=== PATIENT | female | born 1975 | race Caucasian/White ===

== ENCOUNTER 2022-09-28 08:09 | Outpatient (CLI) | payer BC, SELFPAY ==
--- NOTE | ~2022-09-28 | MM_ITS ---
EXAMINATION: MM screening roula BI w phuong HISTORY: Screening TECHNIQUE: Craniocaudal and mediolateral oblique 3-D tomosynthesis images were obtained and synthetic 2-D images were generated. CAD analysis was submitted and interpreted. COMPARISON: No prior mammogram is available for comparison at this institution. BREAST PARENCHYMAL COMPOSITION: The breasts are heterogeneously dense, which may obscure small masses . FINDINGS: There is no evidence of suspicious mass, calcification, or architectural distortion to sugg est malignancy in either breast. There has been no suspicious interval change. IMPRESSION: 1. No mammographic evidence of malignancy. 2. Recommend routine screening mammography in one year. BI-RADS Category 1: Negative Reviewed, dictated and finalized at location A.
== END 2022-09-28 08:10 | disposition home or self-care (01) ==
LOC: ANHIMG 08:10
PROVIDERS: PCP Nurse Practitioner Family; Visit Provider Nurse Practitioner Family
DX: Z12.31 Encounter for screening mammogram for malignant neoplasm of breast (principal)
CPT/HCPCS: 77063; 77067

== ENCOUNTER 2023-03-26 08:21 | Emergency (ER) | payer BC, SELFPAY ==
[2023-03-26 08:43] VITALS: BP 105/85; PULSE 69; RESP 16; TEMP 36.1; O2SAT 97
--- NOTE | 2023-03-26 09:12 | ED.GENADULT ---
HPI - General Adult General Chief complaint: Upper Respiratory Infection Stated complaint: SWOLLEN GLAND/SPOT ON TONSIL/CONGESTION/RUNNY NOSE Source: patient Mode of arrival: ambulatory Limitations: no limitations History of Present Illness HPI narrative: Patient presents for evaluation of sore throat for the last 5 days. She has a history of recurrent tonsillitis and this feels similar. No fever, chills, nausea, vomiting, diarrhea. She has experienced sinus congestion and thick green drainage from her nares. Her had COVID about 2 weeks ago. She took a home COVID test which was negative. Related Data Home Medications Medication Instructions Recorded Confirmed omeprazole 40 mg capsule,delayed 40 mg PO DAILY 05/20/20 03/26/23 release cetirizine 10 mg tablet (Zyrtec) 10 mg PO DAILY PRN allergies 05/17/22 03/26/23 Allergies Allergy/AdvReac Type Severity Reaction Status Date / Time No Known Allergies Allergy Unknown Verified 03/26/23 08:42 Review of Systems Review of Systems: CONSTITUTIONAL: Denies fever, chills, or sweats. EYES: Denies visual changes, redness, or discharge. ENT: Reports sore throat, sinus congestion and thick green nasal drainage. Denies otalgia. CARDIOVASCULAR: Denies chest pain, palpitations, or edema. RESPIRATORY: Denies cough or dyspnea. GASTROINTESTINAL: Denies abdominal pain, nausea, vomiting, or diarrhea. GENITOURINARY: Denies dysuria or hematuria. SKIN: Denies rash or itching. MUSCULOSKELETAL: Denies back pain, joint pain, or myalgia. NEUROLOGIC: Denies headache, numbness, dizziness, or weakness. PSYCHIATRIC: Denies anxiety or depression. [facility] Past Medical History Medical History Allergic rhinitis Anxiety Gastroesophageal reflux disease Tonsillitis Vertigo Vitamin D deficiency Surgical History Surgical History History of hysterectomy (~2012) Family History Family History Mother Hypertension Father Hypertension Diabetes mellitus Cancer Sibling Hypothyroidism Social History Social History Smoking status: Never smoker Alcohol intake: current Substance use: never Substance use type: does not use Lack of Transportation: No Lack of Food: Never True Current Housing: I Have Housing Concerned About Future Housing: No Difficulty Paying Gas/Electric Bills: No Difficulty Paying for Meds: No Currently Unemployed: No Education: Trade/Vocational Certificate Difficulty w/ Childcare or Family Care: No Living arrangements: with family Additional living arrangements comments: Spouse Occupation/Education: occupation 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 HEAD: Normocephalic, atraumatic. EYES: PERRLA and EOMI. ENT: Nares clear, no rhinorrhea or epistaxis. Mucous membranes moist. Posterior pharyngeal erythema with small amount of white exudate. Uvula is midline. Bilateral TMs pearly arriaga nonbulging NECK: Supple. No adenopathy or masses. No carotid bruits or JVD CHEST: Clear to auscultation. No respiratory distress. No wheezes rales or rhonchi HEART: Regular rate and rhythm. No murmur heard. Normal peripheral pulses. ABDOMEN: Soft, nontender, nondistended, normal active bowel sounds. EXTREMITIES: Normal range of motion. No edema. SKIN: Warm, dry, no rash. NEURO: No focal deficits. Alert and oriented x3. PSYCH: Normal mood and affect. Course Course Emergency Course: This is a 48-year-old female who presented
== END 2023-03-26 09:20 | disposition home or self-care (01) ==
PROVIDERS: Emergency Provider Nurse Practitioner; PCP Nurse Practitioner Family
DX: J03.90 Acute tonsillitis, unspecified (principal); Z79.899 Other long term (current) drug therapy
CPT/HCPCS: 87081; 87804; 87880; 99213; G0463

== ENCOUNTER 2023-05-24 02:25 | Day surgery (SDC) | payer BC, SELFPAY ==
--- NOTE | 2023-05-22 08:45 | SUR.PREOP ---
Patient called regarding upcoming procedure. Message left on patient's voicemail regarding preop instructions, appointment times, and procedure prep.
--- NOTE | 2023-05-23 10:40 | PM.HPGS ---
History of Present Illness History of Present Illness Consent: Risks, benefits, and alternatives have been discussed and questions answered. Patient agrees to proceed with procedure. Chief complaint: neoplasm screening Narrative: Veronica Schmid is a 48 year old female who is referred for colon cancer screening. Review of Systems Review of Systems: All systems reviewed & are unremarkable except as noted in HPI and below PMFSH Past Medical History Medical History Allergic rhinitis Anxiety Gastroesophageal reflux disease Tonsillitis Vertigo Vitamin D deficiency Surgical History Surgical History History of hysterectomy (~2012) Family History Family History Mother Hypertension Father Hypertension Diabetes mellitus Cancer Sibling Hypothyroidism Social History Social History Smoking status: Never smoker Alcohol intake: current Substance use: never Substance use type: does not use Lack of Transportation: No Lack of Food: Never True Current Housing: I Have Housing Concerned About Future Housing: No Difficulty Paying Gas/Electric Bills: No Difficulty Paying for Meds: No Currently Unemployed: No Education: Trade/Vocational Certificate Difficulty w/ Childcare or Family Care: No Living arrangements: with family Additional living arrangements comments: Spouse Occupation/Education: occupation 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 Gender identity (if verbalized by the patient): Female Sexual Orientation (if Verbalized by the Patient): Straight or Heterosexual Spiritual care concerns: No Meds Home Medications and Allergies Home Medications Medication Instructions Recorded Confirmed Type omeprazole 40 mg capsule,delayed 40 mg PO DAILY 05/20/20 05/24/23 History release cetirizine 10 mg tablet (Zyrtec) 10 mg PO DAILY PRN allergies 05/17/22 05/24/23 History escitalopram oxalate 20 mg tablet 20 mg PO DAILY #90 tabs 02/14/23 05/24/23 Rx (Lexapro) cholecalciferol (vitamin D3) 1,250 1,250 mcg PO WEEKLY #12 caps 02/22/23 05/24/23 Rx mcg (50,000 unit) capsule scopolamine base 1 mg over 3 days 1 patch transdermal Q3D PRN motion 02/22/23 05/24/23 Rx transdermal patch sickness #10 ea propranolol 20 mg tablet 20 mg PO Q12H #60 tabs 03/20/23 05/24/23 Rx Allergies Allergy/AdvReac Type Severity Reaction Status Date / Time No Known Allergies Allergy Unknown Verified 05/24/23 06:37 Exam Const: General: alert Orientation/consciousness: patient oriented x3 Resp: Auscultation: clear to auscultation bilaterally Cardio: Rhythm: regular rhythm GI: GI Palp: Yes Soft to palpation and No Tenderness to palpation present (GI) Neuro: General: patient oriented x3 Assessment and Plan Assessment and plan (1) Colon cancer screening: Code(s): Z12.11 - Encounter for screening for malignant neoplasm of colon Status: Acute Assessment and Plan: Colonoscopy with possible biopsy or polypectomy or cautery or injection of substances.
[2023-05-24 06:39] VITALS: BP 123/79; PULSE 70; RESP 16; TEMP 37.4; O2SAT 99
[2023-05-24] MEDS: LACTATED RINGERS 1,000 ML 150 ML IV CONT (06:40)
--- NOTE | 2023-05-24 07:19 | WPDANESEPPF ---
Anes - Initial Pre Proc Eval Procedure: Operation Date: 05/24/23 08:00 Proposed Procedures p Screening Colonoscopy - Mark Chang MD Date/Time: 05/24/23 07:19 Surgeon: Mark Chang MD Pre Op Diagnosis: neoplasm screening Patient Data Age: 48 Gender: F Height: Weight: 88.8 kg Last Vital Signs Temp 37.4 C 05/24/23 06:39 Pulse 70 05/24/23 06:39 Resp 16 05/24/23 06:39 BP 123/79 05/24/23 06:39 Pulse Ox 99 05/24/23 06:39 O2 Del Method Room Air 05/24/23 06:39 Allergies Allergy/AdvReac Type Severity Reaction Status Date / Time No Known Allergies Allergy Unknown Verified 05/24/23 06:37 Home Medications Medication Instructions Recorded Confirmed Type omeprazole 40 mg capsule,delayed 40 mg PO DAILY 05/20/20 05/24/23 History release cetirizine 10 mg tablet (Zyrtec) 10 mg PO DAILY PRN allergies 05/17/22 05/24/23 History escitalopram oxalate 20 mg tablet 20 mg PO DAILY #90 tabs 02/14/23 05/24/23 Rx (Lexapro) cholecalciferol (vitamin D3) 1,250 1,250 mcg PO WEEKLY #12 caps 02/22/23 05/24/23 Rx mcg (50,000 unit) capsule scopolamine base 1 mg over 3 days 1 patch transdermal Q3D PRN motion 02/22/23 05/24/23 Rx transdermal patch sickness #10 ea propranolol 20 mg tablet 20 mg PO Q12H #60 tabs 03/20/23 05/24/23 Rx Patient hx anesthesia problems: none Family hx anesthesia problems: none Results Review: All pre-operative results and documents have been reviewed as part of the pre-operative evaluation. [facility] Past Medical History Medical History Allergic rhinitis Anxiety Gastroesophageal reflux disease Tonsillitis Vertigo Vitamin D deficiency Surgical History Surgical History History of hysterectomy (~2012) Family History Family History Mother Hypertension Father Hypertension Diabetes mellitus Cancer Sibling Hypothyroidism Social History Social History Smoking status: Never smoker Alcohol intake: current Substance use: never Substance use type: does not use Lack of Transportation: No Lack of Food: Never True Current Housing: I Have Housing Concerned About Future Housing: No Difficulty Paying Gas/Electric Bills: No Difficulty Paying for Meds: No Currently Unemployed: No Education: Trade/Vocational Certificate Difficulty w/ Childcare or Family Care: No Living arrangements: with family Additional living arrangements comments: Spouse Occupation/Education: occupation 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 Gender identity (if verbalized by the patient): Female Sexual Orientation (if Verbalized by the Patient): Straight or Heterosexual Spiritual care concerns: No Anes - Eval Final PreProcedure Day of Procedure 05/24/23 07:19 Patient weight: obese Heart: regular rate and rhythm Lungs: clear to auscultation Airway: Mallampati scale class II Neurological: alert and oriented Last oral intake: >/= 8 hours ASA classification: II Emergent: no Anesthetic plan: proceed Anesthesia type and monitoring: general GIVS and standard monitoring Results Review: All pre-operative results and documents have been reviewed as part of the pre-operative evaluation. Informed Consent: The patient's anesthetic plan and its attendant risks and benefits were discussed with the patient/family/POA. Questions were solicited and answers provided to the satisfaction of the patient/family/POA.
[2023-05-24 08:00] VITALS: BP 103/70; PULSE 78; RESP 19; O2SAT 99
[2023-05-24 08:10] VITALS: BP 112/77; PULSE 69; RESP 21; O2SAT 99
[2023-05-24 08:20] VITALS: BP 116/86; PULSE 74; RESP 20; O2SAT 100
== END 2023-05-24 08:28 | disposition home or self-care (01) ==
PROVIDERS: PCP Nurse Practitioner Family; Visit Provider Internal Medicine Gastroenterology
PROC: 0DJD8ZZ Inspection of Lower Intestinal Tract, Via Natural or Artificial Opening Endoscopic (ICD-10-PCS; CPT 45378; principal; 2023-05-24 08:00)
DX: Z12.11 Encounter for screening for malignant neoplasm of colon (principal); F41.9 Anxiety disorder, unspecified; K21.9 Gastro-esophageal reflux disease without esophagitis; E55.9 Vitamin D deficiency, unspecified; J30.9 Allergic rhinitis, unspecified; E66.9 Obesity, unspecified; Z68.45 Body mass index [BMI] 70 or greater, adult; Z80.9 Family history of malignant neoplasm, unspecified
CPT/HCPCS: 45378; J2704; J7120

== ENCOUNTER 2024-01-09 07:50 | Outpatient (CLI) | payer BC, SELFPAY ==
--- NOTE | ~2024-01-09 | MM_ITS ---
EXAMINATION: MM screening roula BI w phuong HISTORY: Screening TECHNIQUE: Craniocaudal and mediolateral oblique 3-D tomosynthesis images were obtained and synthetic 2-D images were generated. CAD analysis was submitted and interpreted. COMPARISON: 09/28/2022 BREAST PARENCHYMAL COMPOSITION: Dense: The breasts are heterogeneously dense, which may obscure small masses FINDINGS: There are developing asymmetries in the upper outer quadrant of the right breast. The left breast is stable without evidence for malignancy. IMPRESSION: 1. Developing right breast asymmetries. 2. Additional mammographic views and possible breast ultrasound are recommended. BI-RADS Category 0: Incomplete: Needs additional imaging evaluation. Reviewed, dictated and finalized at location B. IMPRESSION: 1. Developing right breast asymmetries. 2. Additional mammographic views and possible breast ultrasound are recommended . BI-RADS Category 0: Incomplete: Needs additional imaging evaluation.
== END 2024-01-09 07:51 | disposition home or self-care (01) ==
LOC: ANHIMG 07:52
PROVIDERS: PCP Nurse Practitioner Family; Visit Provider Nurse Practitioner Family
DX: Z12.31 Encounter for screening mammogram for malignant neoplasm of breast (principal); N64.89 Other specified disorders of breast
CPT/HCPCS: 77063; 77067

== ENCOUNTER 2024-01-09 11:40 | Outpatient (CLI) | payer BC, SELFPAY ==
--- NOTE | ~2024-01-09 | XR_ITS ---
AP view of the pelvis and AP and lateral views of the left hip Clinical history: Pain Findings: No acute fracture or dislocation is seen. Osseous alignment is anatomic. Bilateral hip and SI joint spaces are preserved. Soft tissues are unremarkable. Impression: No significant abnormality is seen. Reviewed, dictated and finalized at location . Impression: No significant abnormality is seen.
== END 2024-01-09 11:41 ==
PROVIDERS: PCP Nurse Practitioner Family; Visit Provider Nurse Practitioner Family
DX: M25.552 Pain in left hip (principal)
CPT/HCPCS: 73502

== ENCOUNTER 2024-01-30 11:13 | Outpatient (CLI) | payer BC, SELFPAY ==
--- NOTE | ~2024-01-30 | MMUS_ITS ---
EXAMINATION: MM diagnostic roula RT w phuong, US breast RT limited HISTORY: Follow-up right breast asymmetry TECHNIQUE: Additional 3-D tomosynthesis images of the right breast were performed and synthetic 2-D i mages were generated. CAD analysis was submitted and interpreted. High resolution Limited right breas t ultrasound was performed. COMPARISON: Comparison to multiple prior studies sequentially, with oldest reviewed study dated 09/28. BREAST PARENCHYMAL COMPOSITION: Not dense: There are scattered areas of fibroglandular density. FINDINGS: MAMMOGRAPHIC FINDINGS: There are persistent asymmetries in the lateral aspect of the right breast, although no discrete mass or architectural distortion is identified. No suspicious clusters of calcifications. ULTRASOUND: Limited right breast ultrasound: At 8:00, 4 cm from the nipple there is an irregular shaped hypoechoi c 4 mm mass without significant posterior features or internal vascularity. No other suspicious lacey s are identified. IMPRESSION: 1. Irregular shaped hypoechoic 4 mm right breast mass at 8:00, 4 cm from the nipple. 2. Ultrasound-guided right breast biopsy recommended. BI-RADS category 4, suspicious findings. Reviewed, dictated and finalized at location B. IMPRESSION: 1. Irregular shaped hypoechoic 4 mm right breast mass at 8:00, 4 cm from the ni pple. 2. Ultrasound-guided right breast biopsy recommended. BI-RADS category 4, suspicious findings.
== END 2024-01-30 11:14 | disposition home or self-care (01) ==
PROVIDERS: PCP Nurse Practitioner Family; Visit Provider Nurse Practitioner Family
DX: R92.8 Other abnormal and inconclusive findings on diagnostic imaging of breast (principal)
CPT/HCPCS: 76642; 77061; 77065; G0279

== ENCOUNTER 2024-02-07 08:37 | Outpatient (CLI) | payer BC, SELFPAY ==
--- NOTE | ~2024-02-07 | US_ITS ---
US breast RT limited 02/07/2024 11:07 Indication: Right breast mass seen on prior examination. Biopsy requested. Procedure: High-resolution Limited ultrasound of the area of interest Comparison: Ultrasound dated 01/30/2024 Findings: The irregular shaped mass at 8:00, 4 cm from the nipple on prior examination is not localiz ed or duplicated on the current study. Mildly prominent ducts are noted in this area. No discrete shanta id or cystic mass. Impression: 1: Right breast mass could not be duplicated for biopsy purposes. Short-term follow-up ultrasound in 6 months recommended. BI-RADS CATEGORY 3-PROBABLY BENIGN FINDING RECOMMENDATION: Six-month limited right breast ultrasound recommended. Reviewed, dictated and finalized at location B. Impression: 1: Right breast mass could not be duplicated for biopsy purposes. Short-term fo llow-up ultrasound in 6 months recommended. BI-RADS CATEGORY 3-PROBABLY BENIGN FINDING RECOMMENDATION: Six-month limited right breast ultrasound recommended.
== END 2024-02-07 08:38 | disposition home or self-care (01) ==
PROVIDERS: PCP Nurse Practitioner Family; Visit Provider Family Medicine
DX: R92.8 Other abnormal and inconclusive findings on diagnostic imaging of breast (principal)
CPT/HCPCS: 76642

== ENCOUNTER 2024-09-09 10:23 | Outpatient (CLI) | payer OTHER, SELFPAY ==
--- NOTE | ~2024-09-09 | US_ITS ---
EXAMINATION TYPE: US breast RT limited COMPARISON: 02/07/2024, 01/30/2024 REASON FOR STUDY: N63.10 - Unspecified lump in the right breast, unspecifie... TECHNIQUE: Targeted sonographic evaluation of the right breast was performed. INTERPRETATION: At the 8:00 position right breast, 4 cm in level, there is a stable 5 x 4 x 3 mm hypoechoic parallel mass, circumscribed. No posterior shadowing. IMPRESSION: Stable 5 mm probable benign mass at the equator position right breast, as detailed above. Recommend a dditional follow-up right breast ultrasound in 6 months at the time of recommended bilateral mammogra phy. BI-RADS CATEGORY: BI-RADS 3: Probably benign Reviewed, dictated and finalized at location M. IMPRESSION: Stable 5 mm probable benign mass at the equator position right breast, as van led above. Recommend additional follow-up right breast ultrasound in 6 months a t the time of recommended bilateral mammography. BI-RADS CATEGORY: BI-RADS 3: Probably benign
--- OUTSIDE RECORDS SUMMARY | 2024-09-09 12:10 | XMS_ITS | Clinical Summary ---
Author Organization [facility] Address [address] [place] [address] Care Team Providers Care Dental Biller Name Role Phone Chelly Chappell MD Primary Care Provider [phone] Allergies No known active allergies Medications No known medications Social History Tobacco Use Types Packs/Day Years Used Date Smoking Tobacco: Never Smokeless Tobacco: Never Alcohol Use Standard Drinks/Week Comments Not Currently 0 (1 standard drink = 0.6 oz pur e alcohol) Comments No Sex and Gender Information Value Date Recorded Sex Assigned at Not on file Legal Sex Female 10:39 AM CDT Gender Identity Not on file Sexual Orientation Not on file Last Filed Vital Signs Vital Sign Reading Time Taken Comments Blood Pressure 130/84 11/06/2021 10:51 AM CDT Pulse 101 11/06/2021 10:51 AM CDT Temperature 37 C (98.6 F) 11/06/2021 10:51 AM CDT Respiratory Rate 18 11/06/2021 10:51 AM CDT Oxygen Saturation 94% 11/06/2021 10:51 AM CDT Inhaled Oxygen Concentration - - Weight 85.7 kg (189 lb) 11/06/2021 10:51 AM CDT Height 152.4 cm (5') 11/06/2021 10:51 AM CDT Body Mass Index 36.91 11/06/2021 10:51 AM CDT Plan of Treatment Health Maintenance Due Date Last Done Comments Colorectal Cancer Screening Colonoscopy (10 Years) 1974 Annual Physical 1977 Hepatitis C 01/26/1992 DTaP, Tdap and Td Vaccines ( 1 - Tdap) 1993 Hepatitis B Vaccines (1 of 3 - 19+ 3-dose series) 1993 Mammogram Screening 2014 Zoster Vaccines (1 of 2) 01/26/2024 COVID-19 Vaccine (3 - 2023-2 5 season) 2024 08/06/2020, 07/02/2020 Influenza Adult (#1) 2024 Meningococcal B Vaccine Aged Out No l onger eligible based on patient's age to complete this topic Meningococcal Vaccine Aged Out No concha angel eligible based on patient's age to complete this topic Pneumococcal Vaccine: Pediatrics (0 to 5 Years) and At-Risk Patients (6 to 64 Years) Aged Out No longer eligible b ased on patient's age to complete this topic RSV Immunizations Under 20 Months Aged Out No longer eligible b ased on patient's age to complete this topic Insurance Care Teams Dental Biller Relationship Specialty Start Date End Date Chelly Chappell MD [address] [place] [address] [place] [id number] PCP - General FAMILY PRACTICE 11/06/21
== END 2024-09-09 10:24 | disposition home or self-care (01) ==
LOC: ANHIMG 10:24
PROVIDERS: PCP Nurse Practitioner Family; Visit Provider Nurse Practitioner Family
DX: N63.13 Unspecified lump in the right breast, lower outer quadrant (principal); R92.8 Other abnormal and inconclusive findings on diagnostic imaging of breast
CPT/HCPCS: 76642

== ENCOUNTER 2024-09-24 07:53 | Outpatient (CLI) | payer OTHER, SELFPAY ==
--- OUTSIDE RECORDS SUMMARY | 2024-09-24 08:01 | XMS_ITS | Clinical Summary ---
Author Organization [facility] Address [address] [place] [address] Care Team Providers Care Merchandise Handler Name Role Phone Chelly Chappell MD Primary Care Provider [phone] Allergies No known active allergies Medications No [...] to complete this topic Insurance Care Teams Merchandise Handler Relationship Specialty Start Date End Date Chelly Chappell MD [address] [place] [address] [place] [id number] PCP - General FAMILY PRACTICE 11/06/21
[2024-09-26 12:11] VITALS: BMI 36.9
--- NOTE | 2024-09-26 12:11 | WPDHOMESLEEP ---
Sleep Study - Home Unattended Date of Study: 09/24/24 Ordering Provider: BRITTNI Weir-Connie Interpreting Provider: Marcia Cerrato, Home Sleep Study Type: Watch PAT Height: 1.52 m Weight: 85.729 kg Body Mass Index: 36.9 Neck Circumference (inches): 15 Many: 6 Reason for Sleep Study Snoring, nocturnal gasping Sleep History The patient is a 49-year-old female that had a sleep study ordered by her primary care for evaluation of sleep apnea. The patient admits to snoring loudly, trouble maintaining sleep and interruptions in breathing while asleep. The patient admits to choking or gasping at night. She does have trouble breathing on her back. She does have morning headaches. He denies having a dry or sore mouth/ throat in the morning. She does have nocturnal heartburn. She denies nocturia. She denies having difficulty falling asleep. She does have difficulty returning to sleep if she wakes up throughout the night. She denies any hypnotic or sedative use. She denies feeling anxious about sleep. She does feel tired or sleepy during the day. She does feel tired in the morning. She denies having the urge to fall asleep during the day. She does feel drowsy while driving. She denies sleep paralysis, cataplexy and hypnagogic/ hypnopompic hallucinations. She does clench or grind her teeth. She does kick or jerk her legs excessively. She denies having a restless feeling in her legs. She goes to bed at E 40 5:00 p.m. on work days and at 10:00 p.m. on her days off. It takes her 45 minutes to fall asleep on work days and 90 minutes on her days off. She gets 7 hours of sleep were days and 8 hours on her days off. Her sleep is somewhat restorative on her days off. She denies taking any planned naps. She denies dream enactment behavior. She denies sleep walking. She consumes 3-4 cups of caffeinated beverages per day. She denies tobacco and alcohol use. She denies exercising on a regular basis. FOR[facility]LY [facility], [facility] Past Medical History Medical History Vitamin D deficiency Allergic rhinitis Gastroesophageal reflux disease Anxiety Vertigo Tonsillitis Surgical History Surgical History History of hysterectomy (~2012) Family History Family History Mother Hypertension Father Hypertension Diabetes mellitus Cancer Sibling Hypothyroidism Social History Social History Smoking status: Never smoker Alcohol intake: never Substance use: never Substance use type: does not use Do You Feel Safe in your Home?: Yes Lack of Transportation: No Lack of Food: Never True Current Housing: I Have Housing Concerned About Future Housing: No Difficulty Paying Gas/Electric Bills: No Difficulty Paying for Meds: No Currently Unemployed: No Education: Trade/Vocational Certificate Difficulty w/ Childcare or Family Care: No Living arrangements: with family Additional living arrangements comments: Spouse Occupation/Education: occupation 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 Gender identity (if verbalized by the patient): Female Sexual Orientation (if Verbalized by the Patient): Straight or Heterosexual Spiritual care concerns: No Medications Home Medications ?Medication ?Instructions ?Recorded ?Confirmed ?Type cetirizine 10 mg tablet (Zyrtec) 10 mg PO DAILY PRN allergies 05/17/22 09/11/24 History buspirone 5 mg tablet 5 mg PO BID #60 tabs 08/30/24 09/11/24 Rx escitalopram oxalate 20 mg tablet 20 mg PO DAILY #90 tabs 08/30/24 09/11/24 Rx (Lexapro) omeprazole 40 mg capsule,delayed 40 mg PO DAILY #90 caps 08/30/24 09/11/24 Rx release propranolol 40 mg tablet 40 mg PO Q12H #180 tabs 08/30/24 09/11/24 Rx estradiol 0.5 mg tablet 0.5 mg PO DAILY #30 tabs 09/11/24 09/11/24 Rx semaglutide 0.25 mg or 0.5 mg (2 0.25 mg (0.368 mL) subcut WEEKLY 09/20/24 Rx mg/3 mL) subcutaneous pen injector #3 mL (Platteric) Sleep Procedure The sleep study was completed using WatchPAT a technically adequate device with seven channels: peripheral arterial tone, actigraphy, body position, snore, respiratory movement, pulse oximetry, sleep staging, and heart rate. Prior to using the device, the patient received verbal and written instructions for its application and was provided with the help desk phone number for additional telephonic instruction with 24-hour availability of qualified personnel to answer questions. The study was scored using CMS guidelines. Sleep Architecture REM latency is 26 minutes. The patient had 2 episodes of waking. Sleep architecture shows 12.1% deep sleep, 57.5% light sleep, and (as % Total Sleep Time) showed NREM (Light 57.5%; Deep 12.1%), and a 30.4% stage REM. The patient spent 67.2% of total sleep time in the supine position. Sleep efficiency was 96.37. Respiratory Analysis The overall AHI (pAHI 3%:) is 28.9. The central AHI is 0.2. The AHI was 27.4 in NREM and 32.3 in REM sleep. The AHI was 33.7 in Supine and 18.9 in Non-supine sleep. Percent of Sajan Burnett respirations is 0.0. Oximetry Data The oxygen desaturation index (WILVER 4%:) is 15.2. The mean saturation is 92%, and the lowest saturation is 80%. Time spent with saturation < 88% is 8.1 minutes. Snoring Profile Snoring average intensity is 41 dB. The patient snored above 45 decibels for 18.4 minutes, 3.3% of sleep time. Cardiac Profile The average pulse rate is 62 beats per minutes. The lowest pulse rate is 48 bpm. The highest pulse rate reported is 90 bpm. Atrial fibrillation was not detected. Premature beats occur <0.1 per minute. Assessment and Plan Assessment and Plan (1) FARIBA (obstructive sleep apnea): Code(s): G47.33 - Obstructive sleep apnea (adult) (pediatric) Status: Acute Assessment and Plan: The patient had an overall AHI of 15.9 with desaturation down to 80%. This is consistent with moderate sleep apnea. I recommend that the patient be prescribed Resmed AirSense 11 AutoPAP 5-15 cm H2O, CPAP mask/filters/tubing and heated humidity. A mandibular advancement device is also an acceptable treatment option. This should be used with all episodes of sleep.? Compliance should be reviewed within 31-90 days of starting therapy for usage greater than 4 hours per night greater than 70% of the nights. The patient should be asked about symptoms such as?excessive daytime sleepiness, quality of sleep, decreased nocturia, increased?mental functioning such as memory, mood, and concentration. Data The data obtained during this sleep study is adequate for interpretation. Certification This sleep study has been reviewed by a board certified sleep medicine physician.
== END 2024-09-25 11:50 | disposition home or self-care (01) ==
PROVIDERS: PCP Nurse Practitioner Family; Visit Provider Nurse Practitioner Family
DX: G47.33 Obstructive sleep apnea (adult) (pediatric) (principal)
CPT/HCPCS: 95800

== ENCOUNTER 2025-01-14 14:29 | Outpatient (CLI) | payer OTHER, SELFPAY ==
--- NOTE | ~2025-01-14 | XR_ITS ---
XR knee RT 3V 01/14/2025 14:44 Indication: Right knee pain Procedure: 3 views right knee Comparison: No prior studies for comparison. Findings: No fracture, subluxation or dislocation. No joint effusion. No foreign bodies. There is dolly tomic alignment. Impression: 1: No significant bone or joint abnormality. Reviewed, dictated and finalized at location B. Impression: 1: No significant bone or joint abnormality.
== END 2025-01-14 14:30 | disposition home or self-care (01) ==
LOC: GOSHIMG 14:29
PROVIDERS: PCP Nurse Practitioner Family; Visit Provider Nurse Practitioner Family
DX: M25.561 Pain in right knee (principal)
CPT/HCPCS: 73562

== ENCOUNTER 2025-03-12 12:45 | Outpatient (CLI) | payer OTHER, SELFPAY ==
--- NOTE | ~2025-03-12 | MMUS_ITS ---
EXAMINATION: MM diagnostic roula BI w phuong, US breast RT limited INDICATION: 50-year old female; follow-up right breast mass which was recommended for biopsy however decision was made to follow the lesion instead. Annual left mammogram. COMPARISON: 01/30/2024 through 09/28/2022 and ultrasound 09/09/2024 and 02/07/2024. TECHNIQUE: Digital breast tomosynthesis ML, CC and MLO views of both breasts were obtained with computer-aided detection to assist in interpretation of the study. FINDINGS: There are scattered areas of fibroglandular density. No focal dominant mass, architectural distortion or suspicious microcalcifications identified. RIGHT BREAST ULTRASOUND FINDINGS: Targeted evaluation of the areas of concern in the inferior lateral right breast was completed. At 8:00, 4 cm from the nipple a 0.5 x 0.3 x 0.4 cm circumscribed hypoechoic masses reidentified has not significantly changed in the interval. A new 0.4 x 0.3 x 0.5 cm hypoechoic mass that is taller than wide is identified at 8:00 location, 2 cm from the nipple. This lesion is considered suspicious. IMPRESSION: Suspicious right breast mass at 8:00 location, 2 cm from the nipple. Biopsy is recommended. Previously identified right breast mass at 8:00 location, 4 cm from the nipple is unchanged. RECOMMENDATIONS: Ultrasound-guided core needle biopsy of hypoechoic mass at 8:00, 2 cm from the nipple and the hypoechoic mass at 8:00, 4 cm from the nipple. BI-RADS 4, SUSPICIOUS Reviewed, dictated and finalized at location B. IMPRESSION: Suspicious right breast mass at 8:00 location, 2 cm from the nipple. Biopsy is recommended. Previously identified right breast mass at 8:00 location, 4 cm from the nipple is unchanged. RECOMMENDATIONS: Ultrasound-guided core needle biopsy of hypoechoic mass at 8:00, 2 cm from the nipple and the hypoechoic mass at 8:00, 4 cm from the nipple. BI-RADS 4, SUSPICIOUS
--- OUTSIDE RECORDS SUMMARY | 2025-03-12 13:27 | XMS_ITS | Clinical Summary ---
Author Organization [facility] Address [address] [place] [address] Care Team Providers Care Commercial Electrician Name Role Phone Chelly Chappell MD Primary Care Provider [phone] Allergies No known active allergies Medications No [...] 19+ 3-dose series) 1993 Mammogram Screening 2014 Pneumococcal Vaccine: 50+ Years (1 of 1 - PCV) 01/26/2024 Zoster Vaccines (1 of 2) 01/26/2024 COVID-19 Vaccine (3 - 2024-2 6 season) 2025 08/06/2020, 07/02/2020 Meningococcal B Vaccine Aged Out No l onger eligible based on patient's age to complete this topic Meningococcal Vaccine Aged Out No concha angel eligible based on patient's age to complete this topic RSV Immunizations Under 20 Months Aged Out No longer eligible b ased on patient's age to complete this topic Insurance Care Teams Commercial Electrician Relationship Specialty Start Date End Date Chelly Chappell MD [address] [place] [address] [place] [id number] PCP - General FAMILY PRACTICE 11/06/21
== END 2025-03-12 12:46 | disposition home or self-care (01) ==
LOC: ANHFOHIMG 12:53
PROVIDERS: PCP Nurse Practitioner Family; Visit Provider Nurse Practitioner Family
DX: N63.10 Unspecified lump in the right breast, unspecified quadrant (principal); Z12.31 Encounter for screening mammogram for malignant neoplasm of breast; R92.8 Other abnormal and inconclusive findings on diagnostic imaging of breast
CPT/HCPCS: 76642; 77062; 77066; G0279

== ENCOUNTER 2025-03-25 07:15 | Outpatient (CLI) | payer OTHER, SELFPAY ==
--- NOTE | ~2025-03-25 | MMUS_ITS ---
PROCEDURE: US breast biopsy RT w image, US breast bx add lesion RT, MM post biopsy diagnostic RT CLINICAL HISTORY: 50-year-old female with suspicious right breast mass at 8:00, 2 cm from the nipple and at 8:00, 4 cm from the nipple presents for ultrasound- guided core needle biopsy procedure both lesions. COMPARISON: 03/12/2025 Following informed consent including risks, benefits, and possible complications, the patient was brought to the ultrasound suite. A time-out procedure was performed. A preliminary ultrasound of the right breast was performed, redemonstrating hypoechoic mass at 8:00, 2 cm from the nipple and a second hypoechoic oval-shaped mass at 8:00, 4 cm from the nipple. The patient was prepped and draped in the usual sterile fashion. 1% lidocaine was instilled into the subcutaneous tissues. 1% lidocaine without epinephrine was injected into the deep tissues around the lesion. Approximately 10cc lidocaine was administered. A small skin po was made. 4 core samples were obtained from the palpable lesion at 8:00, 2 cm from the nipple, through a Lateral approach with a 14-gauge biopsy needle. A post biopsy coil HydroMark marker was placed at the biopsy site. The patient was prepped and draped in the usual sterile fashion. 1% lidocaine was instilled into the subcutaneous tissues. 1% lidocaine without epinephrine was injected into the deep tissues around the lesion. Approximately 10cc lidocaine was administered. A small skin po was made. 4 core samples were obtained from the palpable lesion at 8:00, 4 cm from the nipple, through a Lateral approach with a 14-gauge biopsy needle. A post biopsy barrel HydroMark marker was placed at the biopsy site. Postprocedural mammogram of the right breast in craniocaudal and mediolateral projections reveal all 2 post biopsy metal markers in good position. The patient tolerated the procedure well and was without immediate postprocedural complications. IMPRESSION: Successful ultrasound guided biopsy of 2 lesions at 8:00 location. 2 post biopsy metal markers placed at the biopsy sites are in good position, which are seen on postprocedural mammogram. The patient tolerated the procedure well without immediate postprocedure complications. The patient was given postprocedural instructions and sent home in stable condition. Biopsy pathology result pending Reviewed, dictated and finalized at location B. IMPRESSION: Successful ultrasound guided biopsy of 2 lesions at 8:00 location. 2 post biopsy metal markers placed at the biopsy sites are in good position, wh ich are seen on postprocedural mammogram. The patient tolerated the procedure well without immediate postprocedure compli cations. The patient was given postprocedural instructions and sent home in sta ble condition. Biopsy pathology result pending IMPRESSION: Successful ultrasound guided biopsy of 2 lesions at 8:00 location. 2 post biopsy metal markers placed at the biopsy sites are in good position, wh ich are seen on postprocedural mammogram. The patient tolerated the procedure well without immediate postprocedure compli cations. The patient was given postprocedural instructions and sent home in sta ble condition. Biopsy pathology result pending
--- NOTE | 2025-03-25 10:17 | S_PTH ---
PATIENT: Veronica Schmid LOC: [facility] #:[id number] AGE/SX: 50/F ROOM: RE03/25/[address]: Anahi Marshall APRN : 1975 BED: DIS: 03/25/2025 SPEC #: [id number] RECD: 03/25/25 12:01 STATUS: CHYNA RIDLEY #: [id number] MARCO A: 03/25/25 10:[address]: Anahi Marshall DEPT: [facility] Surgical RECD BY: Camille Lucero Tissues: A - Breast Biopsy B - Breast Biopsy Procedures: P63 Hematoxylin and Eosin Stain Estrogen Receptor Immuno Gross and Microscopic Level 4 CK 5
== END 2025-03-25 07:16 | disposition home or self-care (01) ==
PROVIDERS: PCP Nurse Practitioner Family; Visit Provider Nurse Practitioner Family
DX: N60.21 Fibroadenosis of right breast (principal)
CPT/HCPCS: 19083; 19084; 77065; 88305; 88342; A4648